=== PATIENT | female | born 1985 | race Caucasian/White ===

== ENCOUNTER 2019-02-24 21:29 | Emergency (ER) | payer MEDICAID ==
[~2019-02-24] VITALS: Ht 154.9 cm; Wt 75.3 kg
[2019-02-24 21:43] VITALS: Ht 154.9 cm; Wt 75.3 kg
[2019-02-24 22:42] LABS: BASOPHIL % 0.5 % (0-2); PLATELET COUNT 269 x10^3mcL (130-400); RED CELL DISTRIBUTION WIDTH 12.8 % (11.5-14.5)
[2019-02-25 00:07] VITALS: BP 127/86
== END 2019-02-25 00:07 | disposition home or self-care (01) ==
LOC: ED 21:29
PROVIDERS: Emergency Medicine
DX: N94.6 Dysmenorrhea, unspecified (principal)
CPT/HCPCS: 36415